=== PATIENT | female | born 1955 | race Caucasian/White ===

== ENCOUNTER 2021-04-17 06:42 | Day surgery (SDC) | payer MEDICAID, SELFPAY ==
[~2021-04-17] VITALS: Ht 157.5 cm; Wt 67.6 kg
[~2021-04-17 06:42] MED LIST: MIDAZOLAM HCL 5 MG/5 ML VIAL ONE; SIMETHICONE 40 MG/0.6 ML ML ONE; fentaNYL CITRATE/PF 100 MCG/2 ML AMP ONE
[2021-04-17] MEDS ORDERED: SIMETHICONE 40 MG/0.6 ML ML ONE (07:19)
[2021-04-17] MEDS: MIDAZOLAM HCL 5 MG/5 ML VIAL ONE ×2 (08:51→08:59)
[2021-04-17] MEDS: fentaNYL CITRATE/PF 100 MCG/2 ML AMP ONE ×2 (08:53→09:01)
[2021-04-17 09:48] VITALS: BP_SYST 111
== END 2021-04-17 19:00 | disposition home or self-care (01) ==
LOC: SDS 06:42 → SMU 06:43 → SDS 19:00
PROVIDERS: ATTEND Internal Medicine
DX: Z12.11 Encounter for screening for malignant neoplasm of colon (principal); D12.2 Benign neoplasm of ascending colon; R93.5 Abnormal findings on diagnostic imaging of other abdominal regions, including retroperitoneum; Z86.010 Personal history of colon polyps
CPT/HCPCS: 36415; 45385; 87426; 88305; 96365; G0378; J2250; J3010; J7030 ×2; U0003; 45380